=== PATIENT | female | born 1960 | race African-American/Black ===

== ENCOUNTER 2017-04-12 14:02 | Outpatient (CLI) | payer OTHER ==
--- NOTE | 2017-04-12 14:45 | Mammography Report ---
Bilateral mammogram: Compared to 04/10/16 and 02/14/15. CAD study utilized. Findings: Predominance of adipose tissue bilaterally. Focal asymmetry/architectural distortion lower mid right breast on MLO view. No microcalcification. Normal axilla. Impression: New focal asymmetry/architectural distortion the right lower breast. Recommend spot mag and if necessary sonographic examination. BI-RADS CATEGORY: 0 = Needs additional imaging evaluation ACR BI-RADS MAMMOGRAPHIC CODES: 0 = Needs additional imaging evaluation; 1 = Negative; 2 = Benign; 3 = Probably benign; 4 = Suspicious; 5 = Malignant; 6 = Known biopsy-proven malignancy COMMENT: 1. Dense breast tissue, i.e., adenosis, fibrocystic changes, etc., may obscure an underlying neoplasm. 2. Approximately 10% of cancers are not detected with mammography. 3. A negative mammography report should not delay biopsy if a clinically suspicious mass is present. COMMENT: Patient follow-up letters are generated in [employer].
== END 2017-04-12 14:03 | disposition home or self-care (01) ==
LOC: MAMMO 14:02
PROVIDERS: ATTEND Family Medicine
DX: Z12.31 Encounter for screening mammogram for malignant neoplasm of breast (principal)
CPT/HCPCS: 77067

== ENCOUNTER 2017-05-06 13:34 | Outpatient (CLI) | payer OTHER ==
--- NOTE | 2017-05-06 14:04 | Mammography Report ---
RIGHT DIGITAL DIAGNOSTIC MAMMOGRAM : 05/06/17 13:34:00 CLINICAL: Recalled for asymmetry. COMPARISON:04/12/17 screening FINDINGS: Lateralmedial and spot compression views were performed and are negative. IMPRESSION: No mammographic evidence of malignancy. BI-RADS CATEGORY: 1 -- Negative RECOMMENDATION: Routine mammographic screening in one year. ACR BI-RADS MAMMOGRAPHIC CODES: 0 = Needs additional imaging evaluation; 1 = Negative; 2 = Benign; 3 = Probably benign; 4 = Suspicious; 5 = Malignant; 6 = Known biopsy-proven malignancy COMMENT: 1. Dense breast tissue, i.e., adenosis, fibrocystic changes, etc., may obscure an underlying neoplasm. 2. Approximately 10% of cancers are not detected with mammography. 3. A negative mammography report should not delay biopsy if a clinically suspicious mass is present. COMMENT: Patient follow-up letters are generated via our [employer] application.
== END 2017-05-06 13:35 | disposition home or self-care (01) ==
LOC: MAMMO 13:34
PROVIDERS: ATTEND Family Medicine
DX: D24.1 Benign neoplasm of right breast (principal); R92.8 Other abnormal and inconclusive findings on diagnostic imaging of breast

== ENCOUNTER 2019-04-19 09:28 | Outpatient (CLI) | payer OTHER ==
--- NOTE | 2019-04-19 14:00 | Mammography Report ---
DIGITAL SCREENING MAMMOGRAM WITH CAD, 04/19/2019 INDICATION: Routine screening mammography. TECHNIQUE: Digital bilateral 2D mammography was obtained in the craniocaudal and mediolateral obliq ue projections. This examination was interpreted with the benefit of Computer-Aided Detection analysi s. COMPARISON: 04/15/2018 FINDINGS: Breast Density: There are scattered areas of fibroglandular density. There is no evidence of dominant mass, suspicious calcifications or architectural distortion in eithe r breast. IMPRESSION: No mammographic evidence of malignancy. Follow up recommendation: Routine yearly BI-RADS Category 1: Negative. A "normal" or negative report should not discourage follow up or biopsy of a clinically significant f inding. A written summary of these findings will be mailed to the patient. The patient will be entered into a mammography reporting system which will generate a reminder letter for the patient's next appointmen t at the appropriate interval. The [employer] recommends yearly mammograms starting at age 40 and continuing as l rob as a woman is in good health. Breast MRI is recommended for women with an approximate 20-25% or greater lifetime risk of breast cancer, including women with a strong family history of breast or ova niurka cancer or who have been treated for Hodgkin's disease. Signer Name: Eliseo Gardiner MD Signed: 04/19/2019 1:55 PM Workstation Name: [id number]
== END 2019-04-19 09:29 | disposition home or self-care (01) ==
LOC: MAMMO 09:28
PROVIDERS: ATTEND Family Medicine
DX: Z12.31 Encounter for screening mammogram for malignant neoplasm of breast (principal); N64.89 Other specified disorders of breast
CPT/HCPCS: 77067

== ENCOUNTER 2019-12-18 09:38 | Outpatient (CLI) | payer OTHER ==
--- NOTE | 2019-12-18 10:34 | XRay Report ---
CHEST 2 VIEWS INDICATION: COVID PNEUMONIA. COMPARISON: None FINDINGS: Support devices: None. Heart: Within normal limits. Lungs/pleura: No acute air space or interstitial disease. No pneumothorax. Additional findings: None. IMPRESSION: No acute findings. Signer Name: Madhu Eckert Jr, MD Signed: 12/18/2019 10:29 AM Workstation Name: [id number]
== END 2019-12-18 09:39 | disposition home or self-care (01) ==
LOC: XRAY 09:38
PROVIDERS: ATTEND Family Medicine
DX: J12.89 Other viral pneumonia (principal)
CPT/HCPCS: 71046

== ENCOUNTER 2020-04-18 10:18 | Outpatient (CLI) | payer OTHER ==
--- NOTE | 2020-04-18 12:12 | Ultrasound Report ---
ULTRASOUND RENAL INDICATION / CLINICAL INFORMATION: KIDNEY STONES PROTOCOL. COMPARISON: None available. FINDINGS: RIGHT KIDNEY: Length = 11.8 cm. [normal > 9 cm] - Parenchymal Thickness = 1.5 cm. [normal > 1.5 cm] - Echogenicity: Normal. - Hydronephrosis: None. - Cyst or mass: No significant abnormality. - Stones: None seen. LEFT KIDNEY: Length = 10.0 cm. [normal > 9 cm] - Parenchymal Thickness = 1.5 cm. [normal > 1.5 cm] - Echogenicity: Normal. - Hydronephrosis: None. - Cyst or mass: No significant abnormality. - Stones: None seen. URINARY BLADDER: No significant abnormality. FREE FLUID: None. ADDITIONAL FINDINGS: None. IMPRESSION: No significant abnormality. Signer Name: Madhu Eckert Jr, MD Signed: 04/18/2020 12:07 PM Workstation Name: [id number]
== END 2020-04-18 10:19 | disposition home or self-care (01) ==
LOC: US 10:18
PROVIDERS: ATTEND Family Medicine
DX: N20.0 Calculus of kidney (principal)
CPT/HCPCS: 76770

== ENCOUNTER 2020-05-10 10:23 | Outpatient (CLI) | payer OTHER ==
--- NOTE | 2020-05-10 12:14 | Mammography Report ---
DIGITAL SCREENING MAMMOGRAM WITH CAD, 05/10/2020 CLINICAL INFORMATION / INDICATION: Routine screening mammography. TECHNIQUE: Digital bilateral 2D mammography was obtained in the craniocaudal and mediolateral obliqu e projections. This examination was interpreted with the benefit of Computer-Aided Detection analysis . COMPARISON: 04/19/2019, 04/15/2018 FINDINGS: Breast Density: There are scattered areas of fibroglandular density. No dominant mass, suspicious calcifications, or architectural distortion in either breast. No interval change. IMPRESSION: No mammographic evidence of malignancy. Follow up recommendation: Routine yearly BI-RADS Category 1: Negative. A "normal" or negative report should not discourage follow up or biopsy of a clinically significant f inding. A written summary of these findings will be mailed to the patient. The patient will be entered into a mammography reporting system which will generate a reminder letter for the patient's next appointmen t at the appropriate interval. The [employer] recommends yearly mammograms starting at age 40 and continuing as l rob as a woman is in good health. Breast MRI is recommended for women with an approximate 20-25% or greater lifetime risk of breast cancer, including women with a strong family history of breast or ova niurka cancer or who have been treated for Hodgkin's disease. Signer Name: Delmi Raymond MD Signed: 05/10/2020 12:09 PM Workstation Name: [id number]
== END 2020-05-10 10:24 | disposition home or self-care (01) ==
LOC: MAMMO 10:23
PROVIDERS: ATTEND Family Medicine
DX: Z12.31 Encounter for screening mammogram for malignant neoplasm of breast (principal)
CPT/HCPCS: 77067

== ENCOUNTER 2020-07-16 11:15 | Outpatient (CLI) | payer OTHER ==
--- NOTE | 2020-07-16 13:35 | XRay Report ---
LUMBAR archive spine, 4+ views HISTORY: Back pain COMPARISON: None. TECHNIQUE: 5 views of the coccyx were obtained. FINDINGS: No evidence of vertebral body fracture or subluxation. There are 5 nonrib-bearing lumbar vertebral tim dies. Mild intervertebral disc space narrowing at L2/L3 with slight end plate osteophytosis at this l evel. Moderate lower lumbar facet arthropathy is noted at L4/L5 and L5/S1. This appears to result in at least moderate neuroforaminal narrowing at these levels bilaterally. IMPRESSION: Lumbar spine without evidence of acute osseous injury. Lower lumbar facet arthropathy at L4/L5 and L5/S1 which appears to result in at least moderate neurof oraminal narrowing bilaterally at these levels. If back pain persists, an MRI may be beneficial for f urther evaluation. Signer Name: Sony Sargent MD Signed: 07/16/2020 1:31 PM Workstation Name: [id number]
== END 2020-07-16 11:16 | disposition home or self-care (01) ==
LOC: XRAY 11:15
PROVIDERS: ATTEND Family Medicine
DX: M48.061 Spinal stenosis, lumbar region without neurogenic claudication (principal); M47.816 Spondylosis without myelopathy or radiculopathy, lumbar region; M25.78 Osteophyte, vertebrae
CPT/HCPCS: 72110